=== PATIENT | male | born 1990 | race Caucasian/White ===

== ENCOUNTER 2019-11-29 22:55 | Emergency (ER) | payer MEDICAID ==
[~2019-11-29] VITALS: Ht 175.3 cm; Wt 122.0 kg
[2019-11-29 23:09] VITALS: BP 135/82
[2019-11-30] MEDS ORDERED: IBUPROFEN 800MG TABLET PO ONE (01:30)
[2019-11-30] MEDS ORDERED: SULFAMETHOXAZOLE/TRIMETHOPRIM 800/160MG TABLET PO ONE (01:30)
== END 2019-11-30 02:01 | disposition home or self-care (01) ==
LOC: ER 22:55
DX: L03.115 Cellulitis of right lower limb (principal)
CPT/HCPCS: 99283